=== PATIENT | male | born 1980 | race Caucasian/White ===

== ENCOUNTER 2019-11-19 17:48 | Emergency (ER) | payer BC ==
[2019-11-19] MEDS ORDERED: ALPRAZolam 0.5 MG Tab PO ONE (18:15)
--- NOTE | 2019-11-19 18:47 | EDM.PDOC ---
ED HPI GENERAL MEDICAL PROBLEM - General Chief Complaint: Cardiovascular Problem Stated Complaint: BLOOD PRESSURE Time Seen by Provider: 11/19/19 18:41 Source of Information: Reports: Patient - History of Present Illness INITIAL COMMENTS - FREE TEXT/NARRATIVE: HISTORY AND PHYSICAL: History of present illness: [pt presents with htn complaint, he is very anxious and has been checking his BP several times tonight prior to coming in , he state his PCP would like him to be seen for BP higher than 150/80s. His BP was in that range on arrival, however was quite anxious bp elevated to 170/100. patient was able to obtain a ride , he was provided xanax 0.5 mg and bp did return to 150/70 no f/n/v/c/s/cp/sob/lorenzo/d/palp ] Review of systems: As per history of present illness and below otherwise all systems reviewed and negative. Past medical history: As per history of present illness and as reviewed below otherwise noncontributory. Surgical history: As per history of present illness and as reviewed below otherwise noncontributory. Social history: No reported history of drug or alcohol abuse. Family history: As per history of present illness and as reviewed below otherwise noncontributory. Physical exam: HEENT: Atraumatic, normocephalic, pupils reactive, negative for conjunctival pallor or scleral icterus, mucous membranes moist, throat clear, neck supple, nontender, trachea midline. Lungs: Clear to auscultation, breath sounds equal bilaterally, chest nontender. Heart: S1S2, regular, negative for clicks, rubs, or JVD. Abdomen: Soft, nondistended, nontender. Negative for masses or hepatosplenomegaly. Negative for costovertebral tenderness. Pelvis: Stable nontender. Genitourinary: Deferred. Rectal: Deferred. Extremities: Atraumatic, negative for cords or calf pain. Neurovascular unremarkable. Neuro: Awake, alert, oriented. Cranial nerves II through XII unremarkable. Cerebellum unremarkable. Motor and sensory unremarkable throughout. Exam nonfocal. Diagnostics: [] Therapeutics: [xanax ] Impression: #1 anxiety about health [elevated bp ] Definitive disposition and diagnosis as appropriate pending reevaluation and review of above. - Related Data Allergies Allergy/AdvReac Type Severity Reaction Status Date / Time No Known Allergies Allergy Verified 02/04/20 18:05 Home Meds: Home Meds Terbinafine HCl 250 mg PO DAILY 11/19/19 [History] Past Medical History Other Dermatologic History: fungal infection - Infectious Disease History Infectious Disease History: Reports: Chicken Pox - Past Surgical History HEENT Surgical History: Reports: Oral Surgery Social & Family History - Family History Family Medical History: Noncontributory - Tobacco Use Smoking Status *Q: Current Every Day Smoker Years of Tobacco use: 20 Packs/Tins Daily: 1 - Recreational Drug Use Recreational Drug Use: No ED ROS GENERAL - Review of Systems Review Of Systems: See Below ED EXAM, GENERAL - Physical Exam Exam: See Below Course - Vital Signs Last Recorded V/S: Last Vital Signs Temp 98.6 F 11/19/19 18:07 Pulse 81 11/19/19 18:07 Resp 20 11/19/19 18:07 BP 154/98 H 11/19/19 18:25 Pulse Ox 99 11/19/19 18:07 - Orders/Labs/Meds Meds: Medications Discontinued Medications Generic Name Dose Route Start Last Admin Trade Name Patrizia PRN Reason Stop Dose Admin Alprazolam 0.5 mg 11/19/19 18:15 11/19/19 18:23 Xanax PO 11/19/19 18:16 0.5 mg NOW ONE Administration Departure - Departure Time of Disposition: 18:45 Disposition: Home, Self-Care 01 Condition: Good Clinical Impression: Anxiety about health, Elevated blood pressure reading Referrals: PCP,Not In Area [Primary Care Provider] - Additional Instructions: medication as prescribed no driving, alcohol, working, or heavy equipment operation on medication follow with primary care for continued management The following information is given to patients seen in the emergency department who are being discharged to home. This information is to outline your options for follow-up care. We provide all patients seen in our emergency department with a follow-up referral. The need for follow-up, as well as the timing and circumstances, are variable depending upon the specifics of your emergency department visit. If you don't have a primary care physician on staff, we will provide you with a referral. We always advise you to contact your personal physician following an emergency department visit to inform them of the circumstance of the visit and for follow-up with them and/or the need for any referrals to a consulting specialist. The emergency department will also refer you to a specialist when appropriate. This referral assures that you have the opportunity for follow-up care with a specialist. All of these measure are taken in an effort to provide you with optimal care, which includes your follow-up. Under all circumstances we always encourage you to contact your private physician who remains a resource for coordinating your care. When calling for follow-up care, please make the office aware that this follow-up is from your recent emergency room visit. If for any reason you are refused follow-up, please contact the [facility] emergency department at and asked to speak to the emergency department charge nurse. Sepsis Event Note - Evaluation Sepsis Screening Result: No Definite Risk - Focused Exam Vital Signs: Vital Signs Temp Pulse Resp BP Pulse Ox 11/19/19 18:25 154/98 H 11/19/19 18:07 98.6 F 81 20 173/106 H 99 Date Exam was Performed: 11/19/19 Time Exam was Performed: 18:41
== END 2019-11-19 19:09 | disposition home or self-care (01) ==
LOC: MW.ED 17:48
DX: R03.0 Elevated blood-pressure reading, without diagnosis of hypertension (principal); F41.9 Anxiety disorder, unspecified; F17.210 Nicotine dependence, cigarettes, uncomplicated
CPT/HCPCS: 99283; A9270; 99282